=== PATIENT | female | born 1990 | race African-American/Black ===

== ENCOUNTER 2022-07-03 12:34 | Emergency (ER) | payer OTHER ==
[2022-07-03] MEDS ORDERED: Oxymetazoline 0.05% Nasal Spray 30 ML Bottle NAS ONE (16:30)
== END 2022-07-03 17:50 | disposition home or self-care (01) ==
LOC: JD.ED 12:34
DX: J01.10 Acute frontal sinusitis, unspecified (principal); Z88.5 Allergy status to narcotic agent; Z88.6 Allergy status to analgesic agent; Z88.8 Allergy status to other drugs, medicaments and biological substances
CPT/HCPCS: 36415; 71045; 80053; 85025; 85610; 85730; 93005; 99285; A9270